=== PATIENT | male | born 1945 | race Caucasian/White ===

== ENCOUNTER 2017-04-13 09:54 | Emergency (ER) | payer MEDICARE, OTHER ==
--- NOTE | 2017-04-13 10:05 | ER Document Report ---
ED GI/ - General Chief Complaint: Flank Pain Stated Complaint: FLANK PAIN Mode of Arrival: Ambulatory Information source: Patient Notes: Patient presents complaining of right flank pain for the past week. Patient states pain radiates around to the right lateral side. Patient denies any nausea, vomiting, fever, or urinary symptoms. Patient states he has a history kidney stones and suspects the same today. TRAVEL OUTSIDE OF THE [place] IN LAST 30 DAYS: No - HPI Patient complains to provider of: Flank pain. No: Abdominal pain, Dysuria, Hematuria, Vomiting Onset: Last week Timing/Duration: Persistent Quality of pain: Achy Pain Level: 4 Location: Right flank Associated symptoms: Other - Right flank pain. denies: Diarrhea, Dysuria, Fever , Loss of appetite, Nausea, Urinary hesitancy, Urinary frequency, Urinary retention, Urinary urgency, Vomiting Exacerbated by: Denies Relieved by: Denies Similar symptoms previously: Yes Recently seen / treated by doctor: No - Related Data Allergies/Adverse Reactions: No Known Allergies Allergy (Verified 04/13/17 10:00) Past Medical History - General Information source: Patient - Social History Smoking Status: Never Smoker Frequency of alcohol use: Occasional Drug Abuse: None Occupation: None Lives with: Spouse/Significant other Family History: CAD, Hypertension - Past Medical History Cardiac Medical History: Reports: Hx Heart Attack - 2, Hx Hypercholesterolemia Endocrine Medical History: Reports: Hx Diabetes Mellitus Type 2 Renal/ Medical History: Reports: Hx Kidney Stones. Denies: Hx Peritoneal Dialysis Past Surgical History: Reports: Hx Cardiac Catheterization, Hx Cardiac Surgery - stent, Hx Tonsillectomy Review of Systems - Review of Systems Constitutional: No symptoms reported. denies: Fever, Recent illness EENT: No symptoms reported Cardiovascular: No symptoms reported. denies: Chest pain Respiratory: No symptoms reported. denies: Cough, Short of breath Gastrointestinal: Abdominal pain - Right lateral side. denies: Nausea, Vomiting Genitourinary: Flank pain - Right flank. denies: Dysuria, Frequency, Hematuria Male Genitourinary: No symptoms reported Musculoskeletal: No symptoms reported Skin: No symptoms reported Hematologic/Lymphatic: No symptoms reported Neurological/Psychological: No symptoms reported Physical Exam - Vital signs Vitals: Temp Pulse Resp BP Pulse Ox 97.7 F 63 18 112/67 96 04/13/17 09:55 04/13/17 09:55 04/13/17 09:55 04/13/17 09:55 04/13/17 09:55 - General General appearance: Appears well, Alert In distress: None - HEENT Head: Normocephalic, Atraumatic Eyes: Normal Conjunctiva: Normal Nasal: Normal Mouth/Lips: Normal Mucous membranes: Normal Neck: Normal, Supple. No: Lymphadenopathy - Respiratory Respiratory status: No respiratory distress Chest status: Nontender Breath sounds: Normal. No: Rales, Rhonchi, Stridor, Wheezing Chest palpation: Normal - Cardiovascular Rhythm: Regular Heart sounds: S1 appreciated, S2 appreciated Murmur: No - Abdominal Inspection: Normal Distension: No distension Bowel sounds: Normal Tenderness: Nontender Organomegaly: No organomegaly - Back Back: CVA tenderness - right - Extremities General upper extremity: Normal inspection, Normal ROM General lower extremity: Normal inspection, Normal ROM - Neurological Neuro grossly intact: Yes Cognition: Normal Albin Coma Scale Eye Opening: Spontaneous Richie Coma Scale Verbal: Oriented Albin Coma Scale Motor: Obeys Commands Albin Coma Scale Total: 15 - Psychological Associated symptoms: Normal affect, Normal mood - Skin Skin Temperature: Warm Skin Moisture: Dry Skin Color: Normal Course - Vital Signs Vital signs: Temp Pulse Resp BP Pulse Ox 97.9 F 65 16 110/68 98 04/13/17 12:08 04/13/17 12:08 04/13/17 12:08 04/13/17 12:08 04/13/17 12:08 - Laboratory Result Diagrams: 04/13/17 10:24 04/13/17 10:24 Laboratory results interpreted by me: 04/13/17 04/13/17 04/13/17 10:09 10:24 10:24 WBC 3.9 L Sodium 136.9 L Glucose 223 H Lipase 337.5 H Urine Glucose (UA) >=500 H Urine Blood SMALL H Urine Urobilinogen 2.0 H Ur Leukocyte Esterase MODERATE H Labs- Entire Visit 04/13/17 04/13/17 04/13/17 10:09 10:24 10:24 WBC 3.9 L RBC 4.57 Hgb 14.3 Hct 41.1 MCV 90 MCH 31.3 MCHC 34.8 RDW 12.6 Plt Count 179 Seg Neutrophils % 47.8 Lymphocytes % 36.6 Monocytes % 9.3 Eosinophils % 5.1 Basophils % 1.2 Absolute Neutrophils 1.8 Absolute Lymphocytes 1.4 Absolute Monocytes 0.4 Absolute Eosinophils 0.2 Absolute Basophils 0.0 Sodium 136.9 L Potassium 4.0 Chloride 101 Carbon Dioxide 28 Anion Gap 8 BUN 12 Creatinine 0.83 Est GFR ( Amer) > 60 Est GFR (Non-Af Amer) > 60 Glucose 223 H Calcium 9.3 Total Bilirubin 0.5 Direct Bilirubin 0.4 Indirect Bilirubin Not Reportable Neonat Total Bilirubin Not Reportable AST 27 ALT 27 Alkaline Phosphatase 52 Total Protein 7.6 Albumin 4.2 Lipase 337.5 H Urine Color YELLOW Urine Appearance CLEAR Urine pH 6.0 Ur Specific Ruby 1.008 Urine Protein NEGATIVE Urine Glucose (UA) >=500 H Urine Ketones NEGATIVE Urine Blood SMALL H Urine Nitrite NEGATIVE Urine Bilirubin NEGATIVE Urine Urobilinogen 2.0 H Ur Leukocyte Esterase MODERATE H Urine WBC (Auto) 26 Urine RBC (Auto) 1 Urine Mucus (Auto) RARE Urine Ascorbic Acid NEGATIVE - Diagnostic Test Radiology reviewed: Reports reviewed Discharge - Discharge Clinical Impression: Flank pain, Elevated lipase, Renal calculus or stone Condition: Stable Disposition: HOME, SELF-CARE Instructions: Flank Pain ([facility]), Kidney Stone ([facility]), Oral Narcotic Medication ( [facility]), Trimethoprim-Sulfa ([facility]) Additional Instructions: Return immediately for any new or worsening symptoms Followup with your primary care provider, call tomorrow to make a followup appointment Follow-up with a urologist for further evaluation of renal stones Urine culture is pending, we will call if you need any different treatment Avoid drinking alcohol Prescriptions: Hydrocodone/Acetaminophen [Prospect 5-325 Tablet] 1 each PO Q8 PRN #15 tablet PRN Reason: Sulfamethoxazole/Trimethoprim [Bactrim Ds Tablet] 1 each PO BID #14 tablet Referrals: MADELINE GONCALVES FNP-C [Primary Care Provider] - 04/15/17 [facility] [Provider Group] - Follow up in 3-5 days
[2017-04-13 10:43] LABS: APPEARANCE,URINE CLEAR; BILIRUBIN,URINE NEGATIVE (NEGATIVE); GLUCOSE, URINE >=500 mg/dL (NEGATIVE); KETONES,URINE NEGATIVE (NEGATIVE); LEUKOCYTE ESTERASE,URINE MODERATE (NEGATIVE); NITRITE,URINE NEGATIVE (NEGATIVE); PROTEIN,URINE NEGATIVE (NEGATIVE); URINE SPECIFIC GRAVITY 1.008
[2017-04-13 10:44] LABS: ABSOLUTE EOSINOPHILS # (AUTO) 0.2 10^3/uL (0.0-0.6); ABSOLUTE LYMPHOCYTES (AUTO) 1.4 10^3/uL (0.5-4.7); ABSOLUTE MONOCYTES (AUTO) 0.4 10^3/uL (0.1-1.4); ABSOLUTE NEUT (AUTO) 1.8 10^3/uL (1.7-8.2); BASOPHILS % (AUTO) 1.2 % (0-2); EOSINOPHILS % (AUTO) 5.1 % (0-6); HEMATOCRIT 41.1 % (37.9-51.0); HEMOGLOBIN 14.3 g/dL (13.5-17.0); HGB HCT DIFFERENCE 1.8; LYMPHOCYTES % (AUTO) 36.6 % (13-45); MEAN CORPUSCULAR HEMOGLOBIN 31.3 pg (27.0-33.4); MEAN CORPUSCULAR HGB CONC 34.8 g/dL (32.0-36.0); MEAN CORPUSCULAR VOLUME 90 fl (80-97); MONOCYTES % (AUTO) 9.3 % (3-13); RED BLOOD COUNT 4.57 10^6/uL (4.35-5.55); RED CELL DISTRIBUTION WIDTH 12.6 % (11.5-14.0); SEGMENTED NEUTROPHILS % (AUTO) 47.8 % (42-78); WHITE BLOOD COUNT 3.9 10^3/uL (4.0-10.5)
--- NOTE | 2017-04-13 10:48 | RADIOLOGY REPORT (SQ) ---
EXAM DESCRIPTION: CT LTD RENAL STONE PROTOCOL ON COMPLETED DATE/TIME: 04/13/2017 10:34 am REASON FOR STUDY: r flank, r lat side pain COMPARISON: 02/04/2013 TECHNIQUE: CT scan of the abdomen and pelvis performed without intravenous or oral contrast. Images reviewed with lung, soft tissue, and bone windows. Reconstructed coronal and sagittal MPR images revi ewed. All images stored on PACS. All CT scanners at this facility use dose modulation, iterative reconstruction, and/or weight based d osing when appropriate to reduce radiation dose to as low as reasonably achievable (ALARA). [facility]: Dose Right [facility]: CareDose [facility]: Dose Right [facility]: Teradose 4D [facility]: [employer] RADIATION DOSE: Up-to-date CT equipment and radiation dose reduction techniques were employed. CTDIv ol: 8.6 mGy. DLP: 456 mGy-cm.mGy. LIMITATIONS: None. FINDINGS: LOWER CHEST: No significant findings. No nodules or infiltrates. NON-CONTRASTED LIVER, SPLEEN, ADRENALS: Evaluation limited by lack of IV contrast. No identified sign ificant masses. PANCREAS: No masses. No peripancreatic inflammatory changes. GALLBLADDER: No identified stones by CT criteria. No inflammatory changes to suggest cholecystitis. RIGHT KIDNEY AND URETER: Tiny cyst lower pole. No suspicious masses. Assessment limited by lack of I V contrast. Multiple nonobstructing calculi similar to prior study. No hydronephrosis or hydroure ter. LEFT KIDNEY AND URETER: No suspicious masses. Assessment limited by lack of IV contrast. Multiple n onobstructing calculi similar to prior study. No hydronephrosis or hydroureter. AORTA AND RETROPERITONEUM: Scattered atherosclerotic calcifications. No aneurysm. No retroperitoneal masses or adenopathy. BOWEL AND PERITONEAL CAVITY: No obvious masses or inflammatory changes. No free fluid. APPENDIX: Normal. PELVIS, BLADDER, AND ABDOMINAL WALL:Tiny fat containing periumbilical hernia and small fat containing right inguinal hernia. No abnormal masses. No free fluid. Bladder normal. BONES: Stable degenerative change without fracture or suspicious osseous lesion. OTHER: No other significant finding. IMPRESSION: STABLE BILATERAL NEPHROLITHIASIS WITHOUT LOWER URINARY TRACT STONES OR HYDRONEPHROSIS. ADDITIONAL CHRONIC CHANGES ABOVE. TECHNICAL DOCUMENTATION: JOB ID: [id number] Quality ID # [id number]: Final reports with documentation of one or more dose reduction techniques (e.g., Au tomated exposure control, adjustment of the mA and/or kV according to patient size, use of iterative reconstruction technique) 2010 [employer]- All Rights Reserved
[2017-04-13] MEDS ORDERED: HYDROCODONE/ACETAMINOPHEN 5-325 MG TABLET PO ONE (10:52)
[2017-04-13 11:02] LABS: ALANINE AMINOTRANSFERASE 27 U/L (21-72); ALBUMIN 4.2 g/dL (3.5-5.0); ALKALINE PHOSPHATASE 52 U/L (38-126); ANION GAP 8 (5-19); ASPARTATE AMINO TRANSFERASE 27 U/L (17-59); BILIRUBIN,DIRECT 0.4 mg/dL (0.0-0.4); BILIRUBIN,TOTAL 0.5 mg/dL (0.2-1.3); BLOOD UREA NITROGEN 12 mg/dL (7-20); CALCIUM 9.3 mg/dL (8.4-10.2); CARBON DIOXIDE 28 mmol/L (22-30); CHLORIDE 101 mmol/L (98-107); CREATININE RESULT 0.83 mg/dL (0.52-1.25); GLUCOSE 223 mg/dL (75-110); LIPASE 337.5 U/L (23-300); SODIUM 136.9 mmol/L (137-145); TOTAL PROTEIN 7.6 g/dL (6.3-8.2)
[2017-04-13] MEDS ORDERED: SULFAMETHOXAZOLE/TRIMETHOPRIM 800-160 MG TABLET PO ONE (11:31)
[2017-04-13 12:08] VITALS: BP 110/68
== END 2017-04-13 12:08 | disposition home or self-care (01) ==
LOC: ER 09:54
DX: R10.9 Unspecified abdominal pain (principal); R74.8 Abnormal levels of other serum enzymes; N20.0 Calculus of kidney
CPT/HCPCS: 99284; 36415; 87086; 83690; 85025; 87088; 80053; 81001; 87186; 76380; A9270 ×2

== ENCOUNTER 2017-06-11 15:23 | Emergency (ER) | payer MEDICARE, OTHER ==
--- NOTE | 2017-06-11 15:53 | ER Document Report ---
ED Medical Screen (RME) - General Chief Complaint: Weakness Stated Complaint: SHORTNESS OF BREATH Time Seen by Provider: 06/11/17 15:52 Notes: Patient has several different concerns. He states he has a knot on the back of his neck. He has had some cough and shortness of breath. He does have pain in his neck that goes down the left side of his body. He also has some pain on the bottom of his feet. He states he has had some numbness on the left side of his face as well for several days. He also has some numbness in his hands but says that is chronic. He states he has been feeling weak and that "something is not right". He also states he has had significant nausea for the last several days. TRAVEL OUTSIDE OF THE [place] IN LAST 30 DAYS: No - Related Data Allergies/Adverse Reactions: No Known Allergies Allergy (Verified 06/11/17 15:42) Past Medical History - Past Medical History Cardiac Medical History: Reports: Hx Heart Attack - 2, Hx Hypercholesterolemia Endocrine Medical History: Reports: Hx Diabetes Mellitus Type 2 Renal/ Medical History: Reports: Hx Kidney Stones. Denies: Hx Peritoneal Dialysis Past Surgical History: Reports: Hx Cardiac Catheterization, Hx Cardiac Surgery - stent, Hx Tonsillectomy Physical Exam - Vital signs Vitals: Temp Pulse BP Pulse Ox 97.7 F 56 L 122/64 99 06/11/17 15:41 06/11/17 15:41 06/11/17 15:41 06/11/17 15:41 Course - Vital Signs Vital signs: Temp Pulse Resp BP Pulse Ox 97.7 F 56 L 122/64 99 06/11/17 15:41 06/11/17 15:41 06/11/17 15:41 06/11/17 15:41
--- NOTE | 2017-06-11 16:42 | RADIOLOGY REPORT (SQ) ---
EXAM DESCRIPTION: CHEST PA/LAT COMPLETED DATE/TIME: 06/11/2017 4:34 pm REASON FOR STUDY: cough/sob COMPARISON: 08/13/2016 EXAM PARAMETERS: NUMBER OF VIEWS: two views TECHNIQUE: Digital Frontal and Lateral radiographic views of the chest acquired. RADIATION DOSE: NA LIMITATIONS: none FINDINGS: LUNGS AND PLEURA: No opacities, masses or pneumothorax. No pleural effusion. MEDIASTINUM AND HILAR STRUCTURES: No masses or contour abnormalities. HEART AND VASCULAR STRUCTURES: Heart normal size. No evidence for failure. BONES: No acute findings. HARDWARE: None in the chest. OTHER: No other significant finding. IMPRESSION: NO SIGNIFICANT RADIOGRAPHIC FINDING IN THE CHEST. TECHNICAL DOCUMENTATION: JOB ID: [id number]- All Rights Reserved
[2017-06-11 16:44] LABS: ABSOLUTE EOSINOPHILS # (AUTO) 0.2 10^3/uL (0.0-0.6); ABSOLUTE LYMPHOCYTES (AUTO) 1.8 10^3/uL (0.5-4.7); ABSOLUTE MONOCYTES (AUTO) 0.6 10^3/uL (0.1-1.4); ABSOLUTE NEUT (AUTO) 3.5 10^3/uL (1.7-8.2); BASOPHILS % (AUTO) 0.7 % (0-2); EOSINOPHILS % (AUTO) 3.4 % (0-6); HEMATOCRIT 42.3 % (37.9-51.0); HEMOGLOBIN 15.1 g/dL (13.5-17.0); MEAN CORPUSCULAR HGB CONC 35.6 g/dL (32.0-36.0); MEAN CORPUSCULAR VOLUME 90 fl (80-97); RED BLOOD COUNT 4.72 10^6/uL (4.35-5.55); RED CELL DISTRIBUTION WIDTH 13.1 % (11.5-14.0); SEGMENTED NEUTROPHILS % (AUTO) 56.9 % (42-78); WHITE BLOOD COUNT 6.1 10^3/uL (4.0-10.5)
[2017-06-11 17:06] LABS: ALANINE AMINOTRANSFERASE 30 U/L (21-72); ALBUMIN 4.7 g/dL (3.5-5.0); ALKALINE PHOSPHATASE 64 U/L (38-126); ANION GAP 14 (5-19); ASPARTATE AMINO TRANSFERASE 24 U/L (17-59); BILIRUBIN,DIRECT 0.4 mg/dL (0.0-0.4); BILIRUBIN,TOTAL 0.6 mg/dL (0.2-1.3); BLOOD UREA NITROGEN 21 mg/dL (7-20); CALCIUM 9.8 mg/dL (8.4-10.2); CARBON DIOXIDE 27 mmol/L (22-30); CHLORIDE 101 mmol/L (98-107); CREATININE RESULT 0.84 mg/dL (0.52-1.25); GLUCOSE 94 mg/dL (75-110); POTASSIUM 3.9 mmol/L (3.6-5.0); SODIUM 141.9 mmol/L (137-145); TOTAL PROTEIN 7.7 g/dL (6.3-8.2)
[2017-06-11] MEDS ORDERED: METOCLOPRAMIDE HCL 10 MG TABLET PO ONE (17:24)
--- NOTE | 2017-06-11 17:28 | ER Document Report ---
ED General - General Mode of Arrival: Ambulatory Information source: Patient TRAVEL OUTSIDE OF THE [place] IN LAST 30 DAYS: No <CARMELINA CEJA - Last Filed: 06/11/17 19:01> <NOEL ALEXANDER - Last Filed: 06/11/17 19:19> - General Chief Complaint: Weakness Stated Complaint: SHORTNESS OF BREATH Time Seen by Provider: 06/11/17 15:52 Notes: Patient is a 72 year old male that presents to the emergency department today with multiple generalized complaints. Patient mentions feelings of generalized weakness with associated nausea and a feeling that he may pass out after 20 or 30 yards of walking which is new for him over the last two days. Patient also mentions that he has a "knot in his neck" which has been present for around 8 or 9 months that he believes is causing the headaches and the pain beside both eyes that he has today. Patient states he has been eating normally. Patient denies any vomiting, heart palpitations, heart racing sensation, diarrhea, numbness, or tingling. (CARMELINA CEJA) - Related Data Allergies/Adverse Reactions: No Known Allergies Allergy (Verified 06/11/17 15:42) Past Medical History - General Information source: Patient, [facility] Records - Social History Smoking Status: Never Smoker Cigarette use (# per day): No Frequency of alcohol use: None Drug Abuse: None Lives with: Family Family History: Reviewed & Not Pertinent, CAD, Hypertension - Past Medical History Cardiac Medical History: Reports: Hx Heart Attack - 2, Hx Hypercholesterolemia Endocrine Medical History: Reports: Hx Diabetes Mellitus Type 2 Renal/ Medical History: Reports: Hx Kidney Stones Past Surgical History: Reports: Hx Cardiac Catheterization, Hx Cardiac Surgery - stent, Hx Tonsillectomy <CARMELINA CEJA - Last Filed: 06/11/17 19:01> Review of Systems - Review of Systems Constitutional: See HPI, Weakness EENT: See HPI, Other - pain near eyes bilaterally Cardiovascular: See HPI, Syncope - near. denies: Palpitations, Heart racing Respiratory: See HPI, Short of breath Gastrointestinal: See HPI, Nausea. denies: Vomiting Genitourinary: No symptoms reported Male Genitourinary: No symptoms reported Musculoskeletal: See HPI, Neck pain Skin: No symptoms reported Hematologic/Lymphatic: No symptoms reported Neurological/Psychological: See HPI, Headaches. denies: Numbness, Tingling -: Yes All other systems reviewed and negative <CARMELINA CEJA - Last Filed: 06/11/17 19:01> Physical Exam <CARMELINA CEJA - Last Filed: 06/11/17 19:01> <NOEL ALEXANDER - Last Filed: 06/11/17 19:19> - Vital signs Vitals: Temp Pulse BP Pulse Ox 97.7 F 56 L 122/64 99 06/11/17 15:41 06/11/17 15:41 06/11/17 15:41 06/11/17 15:41 - Notes Notes: Physical Exam: General: Alert, appears well. HEENT: Normocephalic. Atraumatic. PERRL. Extraocular movements intact. Oropharynx clear. Neck: Supple. Prominent T1 vertebrae. Non-tender. Respiratory: No respiratory distress. Clear and equal breath sounds bilaterally. Cardiovascular: Regular rate and rhythm. Abdominal: Normal Inspection. Non-tender. No distension. Normal Bowel Sounds. Back: Non-tender. No deformity or step off. Extremities: Moves all four extremities. Upper extremities: Normal inspection. Normal ROM. Lower extremities: Normal inspection. No edema. Normal ROM. Neurological: Normal cognition. AAOx4. Normal speech. Psychological: Normal affect. Normal Mood. Skin: Warm. Dry. Normal color. (CARMELINA CEJA) Course - Laboratory Result Diagrams: 06/11/17 16:26 06/11/17 16:26 <CARMELINA CEJA - Last Filed: 06/11/17 19:01> - Laboratory Result Diagrams: 06/11/17 16:26 06/11/17 16:26 <NOEL ALEXANDER - Last Filed: 06/11/17 19:19> - Re-evaluation Re-evalutation: 06/11/17 18:59 Reevaluation- patient no long is nauseated, agrees to follow up with PCP Kourtney Hamm at earliest convenience. 06/11/17 19:01 Nurse states that the patient's states that they have a trip to [place] planned tomorrow, and asked if this was something that would still be possible. Explained that with complaints today, this trip is not advisable. (CARMELINA CEJA) - Vital Signs Vital signs: Temp Pulse Resp BP Pulse Ox 97.7 F 56 L 122/64 99 06/11/17 15:41 06/11/17 15:41 06/11/17 15:41 06/11/17 15:41 - Laboratory Laboratory results interpreted by me: 06/11/17 06/11/17 16:26 16:26 BUN 21 H Urine Blood MODERATE H Ur Leukocyte Esterase TRACE H Discharge <CARMELINA CEJA - Last Filed: 06/11/17 19:01> <NOEL ALEXANDER - Last Filed: 06/11/17 19:19> - Discharge Clinical Impression: Nausea, Neck pain Chest pain Qualifiers: Chest pain type: unspecified Qualified Code(s): R07.9 - Chest pain, unspecified Disposition: HOME, SELF-CARE Instructions: Chest Pain of Unclear Cause ([facility]) Additional Instructions: It is unclear what was causing your chest pain and nausea. This is been going on for a few days. Your blood tests and other tests looked good. You may need further cardiac testing. Please call your doctor tomorrow to arrange for follow -up and possible cardiac stress test. Return the emergency department if you have further chest pain, shortness of breath, or other urgent concerns. Scribe Attestation: 06/11/17 19:19 I personally performed the services described in the documentation, reviewed and edited the documentation which was dictated to the scribe in my presence, and it accurately records my words and actions. (NOEL ALEXANDER) Scribe Documentation - Scribe Written by Scribe:: Ted Pratt, 06/11/2017 1803 acting as scribe for :: Allen <CARMELINA CEJA - Last Filed: 06/11/17 19:01>
[2017-06-11 17:36] LABS: APPEARANCE,URINE CLEAR; BILIRUBIN,URINE NEGATIVE (NEGATIVE); GLUCOSE, URINE NEGATIVE (NEGATIVE); KETONES,URINE NEGATIVE (NEGATIVE); LEUKOCYTE ESTERASE,URINE TRACE (NEGATIVE); NITRITE,URINE NEGATIVE (NEGATIVE); PROTEIN,URINE NEGATIVE (NEGATIVE); URINE SPECIFIC GRAVITY 1.005; UROBILINOGEN,URINE NEGATIVE mg/dL (<2.0)
[2017-06-11 19:24] VITALS: BP 123/74
== END 2017-06-11 19:29 | disposition home or self-care (01) ==
LOC: ER 15:23
DX: R11.0 Nausea (principal); M54.2 Cervicalgia; R07.9 Chest pain, unspecified; R53.1 Weakness; R22.1 Localized swelling, mass and lump, neck; R06.02 Shortness of breath; R55 Syncope and collapse; R51 Headache; E11.9 Type 2 diabetes mellitus without complications; I25.2 Old myocardial infarction; Z95.5 Presence of coronary angioplasty implant and graft
CPT/HCPCS: 99285; 36415; 85025; 80053; 81001; 84484; 71020; A9270

== ENCOUNTER 2017-09-24 22:54 | Observation (INO) | payer MEDICARE, OTHER ==
--- NOTE | 2017-09-25 00:02 | ER Document Report ---
ED General - General Chief Complaint: Chest Pain Stated Complaint: CHEST PAIN Time Seen by Provider: 09/25/17 00:01 Notes: Patient is a 72-year-old male who presents with complaints of dizziness as well as facial droop on the right side as well as difficulty walking. Says symptoms started yesterday. Denies any recent fevers or infections. He did fall today and hit his head. He says he has headache over the left top part of his head since falling and hitting his head. He said he did have dizziness once. He was admitted here back in May. At that time he had vertigo type symptoms and that he had a spinning sensation. Patient denies a spinning sensation this time. Denies any vomiting. No diarrhea. There is chief complaint of chest pain on the chart. Patient says he has just very mild chest tightness. He says this is typical for him and nothing new. He does have history of coronary artery disease and does have stents. He did have a stress test in 2014 which was negative for any signs of acute ischemia. He does have a history of ischemic cardiomyopathy. TRAVEL OUTSIDE OF THE [place] IN LAST 30 DAYS: No - Related Data Allergies/Adverse Reactions: No Known Allergies Allergy (Verified 09/24/17 22:55) Past Medical History - Social History Smoking Status: Never Smoker Frequency of alcohol use: None Drug Abuse: None Family History: Reviewed & Not Pertinent, CAD, Hypertension Patient has suicidal ideation: No Patient has homicidal ideation: No - Past Medical History Cardiac Medical History: Reports: Hx Heart Attack - 2, Hx Hypercholesterolemia Endocrine Medical History: Reports: Hx Diabetes Mellitus Type 2 Renal/ Medical History: Reports: Hx Kidney Stones. Denies: Hx Peritoneal Dialysis Past Surgical History: Reports: Hx Cardiac Catheterization, Hx Cardiac Surgery - stent, Hx Tonsillectomy Review of Systems - Review of Systems Notes: My Normal Review Basic REVIEW OF SYSTEMS: CONSTITUTIONAL : Denies fever, chills, or sweats. Denies recent illness. EENT: Denies eye, ear, throat, or mouth pain or symptoms. Denies nasal or sinus congestion. RESPIRATORY: Denies cough, cold, or chest congestion. Denies shortness of breath, difficulty breathing, or wheezing. GASTROINTESTINAL: Denies abdominal pain. Denies nausea, vomiting, or diarrhea. GENITOURINARY: Denies difficulty urinating, painful urination, burning, frequency, or blood in urine. MUSCULOSKELETAL: Denies neck or back pain or joint pain or swelling. SKIN: Denies rash or skin lesions. NEUROLOGICAL: Weakness to the right side of the face. Difficulty ambulating. Has a mild headache. ALL OTHER SYSTEMS REVIEWED AND NEGATIVE. Physical Exam - Vital signs Vitals: Temp Pulse Resp BP Pulse Ox 97.4 F 58 L 22 H 91/62 L 95 09/24/17 23:15 09/24/17 23:15 09/24/17 23:15 09/24/17 23:15 09/24/17 23:15 - Notes Notes: General Appearance: Well nourished, alert, cooperative, no acute distress, no obvious discomfort. Vitals: reviewed, See vital signs table. Head: no swelling or tenderness to the head Eyes: PERRL, EOMI, Conjuctiva clear Mouth: No decreasd moisture Lungs: No wheezing, No rales, No rhonci, No accessory muscle use, good air exchange bilaterally. Heart: Normal rate, Regular rythm, No murmur, no rub Abdomen: Normal BS, soft, No rigidity, No abdominal tenderness, No guarding, no rebound, no abdominal masses, no organomegaly Extremities: strength 5/5 in all extremities, good pulses in all extremities, no swelling or tenderness in the extremities, no edema. Skin: warm, dry, appropriate color, no rash Neuro: speech clear, oriented x 3, normal affect, responds appropriately to questions. Cranial nerves II through XII are intact with exception of right- sided facial droop and the patient has a small. He is able to wrinkle his forehead without difficulty. He has good strength in all 4 extremities. Normal distal sensation. When he stands to walk he shuffles his gait and starts to fall towards the side. Course - Re-evaluation Re-evalutation: 09/25/17 02:13 #3 evaluate the patient he still had right-sided facial droop when he tried small. I started become suspicious because the patient then went when sitting up out of bed and when he went steep raise both sides of his face symmetrically. I asked the patient why he was able just to do that. Patient says he is not sure is talking about and again cannot raise rest of his face when he went to small. He is able to talk normal without slurring speech. I asked him if there is anything emotionally going on her feet had a reason otherwise to want to be in the hospital. Patient immediately denied that and says that he truly cannot raise rest of his face when he smiles and says that he has difficulty walking. I asked the to come outside and speak with me. She says that is not sure if the patient's symptoms are real or not either. She denies having history of psychiatric illness but says she almost thinks that this could potentially be psychiatric if he is faking it. She again is not sure if he is faking or not but also has her suspicions. Patient is 72 years old without a history of psychiatric illness or disorder. I suspect in the end this may be psychiatric; however, being that he has multiple risk factors for stroke and has no previous history of psychiatric illness at age 72 and feels appropriate to admit for MRI. The MRI is negative and his workup is negative he may eventually need psychiatric consult. I did discuss the case with Dr. Quevedo, hospitalist, who agrees to admit the patient. Dictation of this chart was performed using voice recognition software; therefore, there may be some unintended grammatical errors. - Vital Signs Vital signs: Temp Pulse Resp BP Pulse Ox 97.4 F 58 L 17 101/68 96 09/24/17 23:15 09/24/17 23:15 09/24/17 23:29 09/24/17 23:28 09/24/17 23:28 - Laboratory Result Diagrams: 09/25/17 00:28 09/25/17 00:28 Laboratory results interpreted by me: 09/25/17 00:28 Sodium 136.2 L Glucose 244 H - EKG Interpretation by Me Additional EKG results interpreted by me: 09/25/17 00:02 EKG is reviewed and interpreted by me. EKG shows sinus bradycardia with rate of [address] segment elevation or depression. No ischemic T-wave inversions. CO interval, QRS duration, QTc intervals are within normal range. Old EKG for comparison is from August 13, 2016. Discharge - Discharge Clinical Impression: Dizziness, Facial droop, Bradycardia Condition: Stable Disposition: ADMITTED OBSERVATION Admitting Provider: Hospitalist Unit Admitted: Telemetry Referrals: MADELINE GONCALVES, RHIANNON-C [Primary Care Provider] - Follow up as needed
[2017-09-25] MEDS ORDERED: NORMAL SALINE 500 ML IV ONE (00:11)
[2017-09-25] MEDS ORDERED: ONDANSETRON HCL INJ/PF 4 MG/2 ML SDV IV ONE (00:20)
[2017-09-25 00:38] LABS: ABSOLUTE BASOPHILS # (AUTO) 0.1 10^3/uL (0.0-0.2); ABSOLUTE EOSINOPHILS # (AUTO) 0.2 10^3/uL (0.0-0.6); ABSOLUTE LYMPHOCYTES (AUTO) 1.6 10^3/uL (0.5-4.7); ABSOLUTE MONOCYTES (AUTO) 0.7 10^3/uL (0.1-1.4); ABSOLUTE NEUT (AUTO) 3.7 10^3/uL (1.7-8.2); BASOPHILS % (AUTO) 0.9 % (0-2); EOSINOPHILS % (AUTO) 2.5 % (0-6); HEMATOCRIT 40.1 % (37.9-51.0); LYMPHOCYTES % (AUTO) 25.5 % (13-45); MEAN CORPUSCULAR HEMOGLOBIN 30.7 pg (27.0-33.4); MEAN CORPUSCULAR HGB CONC 34.9 g/dL (32.0-36.0); MEAN CORPUSCULAR VOLUME 88 fl (80-97); MONOCYTES % (AUTO) 11.5 % (3-13); PLATELET COUNT 182 10^3/uL (150-450); RED BLOOD COUNT 4.56 10^6/uL (4.35-5.55); RED CELL DISTRIBUTION WIDTH 12.6 % (11.5-14.0); SEGMENTED NEUTROPHILS % (AUTO) 59.6 % (42-78); TOTAL CELLS COUNTED % (AUTO) 100 %; WHITE BLOOD COUNT 6.2 10^3/uL (4.0-10.5)
--- NOTE | 2017-09-25 00:39 | RADIOLOGY REPORT (SQ) ---
EXAM DESCRIPTION: CT HEAD WITHOUT COMPLETED DATE/TIME: 09/25/2017 12:21 am REASON FOR STUDY: headache, right sided facial weakness COMPARISON: CT brain and MRI head 08/13/2016. TECHNIQUE: Axial images acquired through the brain without intravenous contrast. Images reviewed wi th bone, brain and subdural windows. Images stored on PACS. All CT scanners at this facility use dose modulation, iterative reconstruction, and/or weight based d osing when appropriate to reduce radiation dose to as low as reasonably achievable (ALARA). [facility]: Dose Right [facility]: CareDose [facility]: Dose Right [facility]: Teradose 4D [facility]: [employer] RADIATION DOSE: CT Rad equipment meets quality standard of care and radiation dose reduction techniq ues were employed. CTDIvol: 64.6 mGy. DLP: 1292 mGy-cm. mGy. LIMITATIONS: None. FINDINGS: VENTRICLES: Normal size and contour. CEREBRUM: No mass effect. No hemorrhage. No midline shift. Normal uribe/white matter differentiatio n. No evidence for acute territorial infarction. CEREBELLUM: No mass effect. No hemorrhage. No alteration of density. No evidence for acute infarct ion. EXTRAAXIAL SPACES: No fluid collections. ORBITS AND GLOBE: Symmetrical contour of the globes. CALVARIUM: No depressed skull fracture. PARANASAL SINUSES: No air-fluid level. SOFT TISSUES: No hematoma. IMPRESSION: No acute intracranial hemorrhage or acute territorial infarct. EVIDENCE OF ACUTE STROKE: NO. COMMENT: Quality ID # [id number]: Final reports with documentation of one or more dose reduction techniques (e.g., Automated exposure control, adjustment of the mA and/or kV according to patient size, use of iterative reconstruction technique) TECHNICAL DOCUMENTATION: JOB ID: [id number]- All Rights Reserved
--- NOTE | 2017-09-25 00:42 | RADIOLOGY REPORT (SQ) ---
EXAM DESCRIPTION: CHEST SINGLE VIEW COMPLETED DATE/TIME: 09/25/2017 12:24 am REASON FOR STUDY: chest pain COMPARISON: Chest x-ray 06/11/2017. EXAM PARAMETERS: NUMBER OF VIEWS: One view. TECHNIQUE: Single frontal radiographic view of the chest acquired. RADIATION DOSE: NA LIMITATIONS: None. FINDINGS: LUNGS AND PLEURA: No consolidation, pneumothorax or pleural effusion. MEDIASTINUM AND HILAR STRUCTURES: No masses. Contour normal. HEART AND VASCULAR STRUCTURES: Heart normal in size. Normal vasculature. BONES: No acute findings. HARDWARE: None in the chest. IMPRESSION: No acute radiographic finding in the chest. TECHNICAL DOCUMENTATION: JOB ID: [id number] [id number]- All Rights Reserved
[2017-09-25 00:44] LABS: INTERNATIONAL RATION (INR) 0.92
[2017-09-25 00:45] LABS: PARTIAL THROMBOPLASTIN TIME 33.2 SEC (23.5-35.8)
[2017-09-25 00:47] LABS: ALANINE AMINOTRANSFERASE 31 U/L (21-72); ALBUMIN 4.2 g/dL (3.5-5.0); ALKALINE PHOSPHATASE 53 U/L (38-126); ANION GAP 9 (5-19); ASPARTATE AMINO TRANSFERASE 20 U/L (17-59); BILIRUBIN,DIRECT 0.3 mg/dL (0.0-0.4); BILIRUBIN,TOTAL 0.5 mg/dL (0.2-1.3); BLOOD UREA NITROGEN 18 mg/dL (7-20); CALCIUM 9.7 mg/dL (8.4-10.2); CARBON DIOXIDE 26 mmol/L (22-30); CHLORIDE 101 mmol/L (98-107); GLUCOSE 244 mg/dL (75-110); POTASSIUM 4.2 mmol/L (3.6-5.0); SODIUM 136.2 mmol/L (137-145); TOTAL PROTEIN 6.9 g/dL (6.3-8.2)
[2017-09-25] MEDS ORDERED: MAG HYDROX/AL HYDROX/SIMETH SUSP 30 ML UDCUP PO PRN (02:26)
[2017-09-25] MEDS ORDERED: ACETAMINOPHEN 325 MG TABLET PO PRN (02:26)
[2017-09-25] MEDS ORDERED: HYDROCODONE/ACETAMINOPHEN 5-325 MG TABLET PO PRN (02:28)
[2017-09-25] MEDS ORDERED: DIAZEPAM 5 MG TABLET PO PRN (02:28)
[2017-09-25 02:31] LABS: URINE AMPHETAMINES SCREEN NEGATIVE; URINE BARBITURATES SCREEN NEGATIVE; URINE BENZODIAZEPINES SCREEN NEGATIVE; URINE COCAINE SCREEN NEGATIVE; URINE MARIJUANA (THC) SCREEN NEGATIVE; URINE METHADONE SCREEN NEGATIVE; URINE PHENCYCLIDINE SCREEN NEGATIVE
[2017-09-25] MEDS ORDERED: HYDRALAZINE HCL 25 MG TABLET PO ONE (02:45)
[2017-09-25] MEDS ORDERED: RISPERIDONE 0.25 MG TABLET PO ONE (03:00)
[2017-09-25] MEDS ORDERED: NORMAL SALINE 1000 ML 1,000 ML IV ONE (05:50)
--- NOTE | 2017-09-25 06:05 | PDOC H&P ---
History of Present Illness Admission Date/PCP: 09/25/17 02:25 MADELINE GONCALVES, RHIANNON-C Patient complains of: Difficulty with walking, alternating left and right-sided facial weakness. History of Present Illness: SUJATHA CAMARILLO is a 72 year old male with a past medical history of posttraumatic stress disorder, questionable paranoia, conversion disorder, coronary artery disease and diabetes. Patient presents with vague headache 6 hours associated with intermittent dizziness, alternating left and right facial weakness, alternating left and right deafness, and difficulty walking. Patient' s is at bedside who is able to clarify complaints patient is a poor historian and agitated. Patient recently refilled unknown psychiatric medication. Patient currently is fluent, denies deficits or complaints. In the emergency room he is found to have mild hypotension and hyperglycemia. He is referred to the hospitalist for observation. Past Medical History Cardiac Medical History: Reports: Myocardial Infarction - 2, Hyperlipidema Endocrine Medical History: Reports: Diabetes Mellitus Type 2 Psychiatric Medical History: Reports: Post Traumatic Stress Disorder Past Surgical History Past Surgical History: Reports: Cardiac Catheterization, Tonsillectomy Social History Information Source: Patient Lives with: Spouse/Significant other Smoking Status: Never Smoker Frequency of Alcohol Use: None Hx Recreational Drug Use: No Drugs: None Hx Prescription Drug Abuse: No - Advance Directive Resuscitation Status: Full Code Family History Family History: Reviewed & Not Pertinent, CAD, Hypertension Parental Family History Reviewed: Yes Children Family History Reviewed: Yes Sibling(s) Family History Reviewed.: Yes Medication/Allergy Home Medications: Aspirin [Aspirin 81 mg Chewable Tablet] 81 mg PO DAILY 12/23/14 Atorvastatin Calcium 40 mg PO DAILY 12/23/14 Gabapentin 600 mg PO TID 12/23/14 Hydroxyzine HCl 25 mg PO BID 12/23/14 Lisinopril 10 mg PO DAILY 12/23/14 Metformin HCl [Glucophage] 500 mg PO BID 12/23/14 Niacin [Niaspan] 1,000 mg PO DAILY 12/23/14 [place]-3 Fatty Acids/Fish Oil [[place] 3 Fish Oil Softgel] 2 each PO DAILY Sertraline HCl [Zoloft] 100 bottle PO BID 08/13/16 Cyclobenzaprine HCl 10 mg PO PRN PRN 09/25/17 Prazosin HCl 2 mg PO BID 09/25/17 Simvastatin [Simvastatin] 40 mg PO DAILY 09/25/17 Allergies/Adverse Reactions: No Known Allergies Allergy (Verified 09/24/17 22:55) Review of Systems Psychiatric: PRESENT: as per HPI, anxiety, depression. ABSENT: hallucinations, homidical ideation, suicidal ideation Physical Exam Vital Signs: Temp Pulse Resp BP Pulse Ox 97.4 F 58 L 17 99/53 L 95 09/24/17 23:15 09/24/17 23:15 09/25/17 05:01 09/25/17 05:01 09/25/17 05:01 Results Impressions: Head CT 09/25/17 00:10 IMPRESSION: No acute intracranial hemorrhage or acute territorial infarct. EVIDENCE OF ACUTE STROKE: NO. Chest X-Ray 09/25/17 00:11 IMPRESSION: No acute radiographic finding in the chest. Assessment & Plan - Diagnosis (1) Bradycardia Is this a current diagnosis for this admission?: Yes Plan: Most likely cause of patient presentation with dizziness upon standing, headache and hypotension secondary to prazosin twice daily. Dosing change to schedule at night, IV fluid challenge. Follow-up orthostatic blood pressures. (2) Posttraumatic stress disorder Is this a current diagnosis for this admission?: Yes Plan: Unclear regiment Risperdal nightly ordered (3) Dizziness Is this a current diagnosis for this admission?: Yes Plan: Secondary to terazosin, Vistaril resulting in bradycardia and hypotension. Terazosin scheduled at night, TONE stockings and orthostatic blood pressures (4) Facial droop Is this a current diagnosis for this admission?: Yes Plan: Patient's neurologic complaints of alternating left and right facial droop with deafness does not suggest organic cause nor suggested by history given by . Will reevaluate following Risperdal (5) Diabetes Qualifiers: Diabetes mellitus type: type 2 Diabetes mellitus complication status: without complication Diabetes mellitus intermission coordinator insulin use: without intermission coordinator use Qualified Code(s): E11.9 - Type 2 diabetes mellitus without complications Is this a current diagnosis for this admission?: Yes Plan: Hold metformin, evaluate A1c and sliding scale coverage ordered (6) HTN (hypertension) Qualifiers: Hypertension type: essential hypertension Qualified Code(s): I10 - Essential (primary) hypertension Is this a current diagnosis for this admission?: Yes Plan: Currently hypotensive likely secondary to excessive prazosin. hypertensive medications held for systolic pressure greater than 160 - Time Time Spent: 50 to 70 Minutes - Inpatient Certification Medical Necessity: Need Close Monitoring Due to Risk of Patient Decompensation
[2017-09-25] MEDS: HEPARIN SOD (PORCINE) 5,000 UNIT/ML 1 ML SYRINGE SUBCUT SCH ×3 (06:22→22:27)
[2017-09-25 06:41] LABS: ABSOLUTE EOSINOPHILS # (AUTO) 0.1 10^3/uL (0.0-0.6); ABSOLUTE LYMPHOCYTES (AUTO) 1.5 10^3/uL (0.5-4.7); ABSOLUTE MONOCYTES (AUTO) 0.6 10^3/uL (0.1-1.4); ABSOLUTE NEUT (AUTO) 2.5 10^3/uL (1.7-8.2); BASOPHILS % (AUTO) 0.8 % (0-2); EOSINOPHILS % (AUTO) 2.9 % (0-6); HEMOGLOBIN 13.1 g/dL (13.5-17.0); LYMPHOCYTES % (AUTO) 31.1 % (13-45); MEAN CORPUSCULAR HEMOGLOBIN 31.1 pg (27.0-33.4); MEAN CORPUSCULAR HGB CONC 35.3 g/dL (32.0-36.0); MEAN CORPUSCULAR VOLUME 88 fl (80-97); MONOCYTES % (AUTO) 12.2 % (3-13); PLATELET COUNT 169 10^3/uL (150-450); RED BLOOD COUNT 4.21 10^6/uL (4.35-5.55); RED CELL DISTRIBUTION WIDTH 12.6 % (11.5-14.0); TOTAL CELLS COUNTED % (AUTO) 100 %; WHITE BLOOD COUNT 4.7 10^3/uL (4.0-10.5)
[2017-09-25 07:05] LABS: CREATINE KINASE MB 0.45 ng/mL (<4.55)
[2017-09-25 07:06] LABS: TROPONIN I < 0.012 ng/mL
--- NOTE | 2017-09-25 08:12 | EKG REPORT ---
SEVERITY:- ABNORMAL ECG - SINUS BRADYCARDIA PROBABLE INFERIOR INFARCT, AGE INDETERMINATE : Confirmed by: Salomón Nix MD 25-Sep-2017 08:11:26
[2017-09-25] MEDS ORDERED: DOXAZOSIN MESYLATE 4 MG TABLET PO SCH ×2 (10:00→22:00)
[2017-09-25] MEDS: HYDRALAZINE HCL 25 MG TABLET PO SCH ×2 (10:01→22:27)
[2017-09-25] MEDS: DOCUSATE SODIUM 100 MG CAPSULE PO SCH ×2 (10:02→17:40)
[2017-09-25] MEDS: SERTRALINE HCL 50 MG TABLET PO SCH ×2 (10:02→22:27)
[2017-09-25] MEDS: RISPERIDONE 0.25 MG TABLET PO SCH (10:02)
[2017-09-25] MEDS: GABAPENTIN 300 MG CAPSULE PO SCH ×3 (10:02→17:44)
[2017-09-25] MEDS: ASPIRIN 81 MG TABLET, CHEWABLE PO SCH (10:02)
[2017-09-25 14:04] LABS: CREATINE KINASE MB 0.27 ng/mL (<4.55)
[2017-09-25 14:05] LABS: TROPONIN I < 0.012 ng/mL
[2017-09-25 19:04] LABS: CREATINE KINASE MB 0.26 ng/mL (<4.55)
[2017-09-25 19:15] LABS: TROPONIN I < 0.012 ng/mL
[2017-09-25] MEDS ORDERED: DOXAZOSIN MESYLATE 2 MG TABLET PO SCH (22:00)
[2017-09-26] MEDS: HEPARIN SOD (PORCINE) 5,000 UNIT/ML 1 ML SYRINGE SUBCUT SCH ×2 (05:03→13:53)
[2017-09-26 05:24] LABS: ABSOLUTE EOSINOPHILS # (AUTO) 0.2 10^3/uL (0.0-0.6); ABSOLUTE LYMPHOCYTES (AUTO) 1.5 10^3/uL (0.5-4.7); ABSOLUTE MONOCYTES (AUTO) 0.4 10^3/uL (0.1-1.4); ABSOLUTE NEUT (AUTO) 3.1 10^3/uL (1.7-8.2); BASOPHILS % (AUTO) 0.7 % (0-2); EOSINOPHILS % (AUTO) 3.4 % (0-6); HEMATOCRIT 38.5 % (37.9-51.0); HEMOGLOBIN 13.6 g/dL (13.5-17.0); LYMPHOCYTES % (AUTO) 28.1 % (13-45); MEAN CORPUSCULAR HEMOGLOBIN 31.1 pg (27.0-33.4); MEAN CORPUSCULAR HGB CONC 35.3 g/dL (32.0-36.0); MEAN CORPUSCULAR VOLUME 88 fl (80-97); MONOCYTES % (AUTO) 8.5 % (3-13); PLATELET COUNT 154 10^3/uL (150-450); RED BLOOD COUNT 4.37 10^6/uL (4.35-5.55); RED CELL DISTRIBUTION WIDTH 12.6 % (11.5-14.0); SEGMENTED NEUTROPHILS % (AUTO) 59.3 % (42-78); TOTAL CELLS COUNTED % (AUTO) 100 %; WHITE BLOOD COUNT 5.3 10^3/uL (4.0-10.5)
[2017-09-26] MEDS: DOCUSATE SODIUM 100 MG CAPSULE PO SCH (10:03)
[2017-09-26] MEDS: SERTRALINE HCL 50 MG TABLET PO SCH (10:03)
[2017-09-26] MEDS: ASPIRIN 81 MG TABLET, CHEWABLE PO SCH (10:03)
[2017-09-26] MEDS: GABAPENTIN 300 MG CAPSULE PO SCH (10:03)
[2017-09-26] MEDS: RISPERIDONE 0.25 MG TABLET PO SCH (10:03)
[2017-09-26] MEDS: HYDRALAZINE HCL 25 MG TABLET PO SCH (10:03)
[2017-09-26 12:37] VITALS: BP 117/69
[2017-09-26] MEDS ORDERED: DOXAZOSIN MESYLATE 4 MG TABLET PO SCH (22:00)
--- NOTE | 2017-09-28 17:35 | PDOC DISCHARGE SUMMARY ---
General - Admit/Disc Date/PCP Admission Date/Primary Care Provider: 09/25/17 02:25 TAE LUGO Discharge Date: 09/26/17 - Discharge Diagnosis (2) Dizziness Is this a current diagnosis for this admission?: Yes (3) Posttraumatic stress disorder Is this a current diagnosis for this admission?: Yes (4) Diabetes Is this a current diagnosis for this admission?: Yes - Additional Information Resuscitation Status: Full Code Discharge Diet: Regular Discharge Activity: Activity As Tolerated Home Medications: Atorvastatin Calcium [Lipitor 40 mg Tablet] 40 mg PO QHS 09/25/17 Lisinopril [Prinivil 10 mg Tablet] 10 mg PO DAILY 09/25/17 Metformin HCl [Glucophage 500 mg Tablet] 1,000 mg PO BID 09/25/17 Niacin [Niacin ER] 1,000 mg PO DAILY 09/25/17 Aspirin [Aspirin 81 mg Chewable Tablet] 81 mg PO DAILY tab.chew 09/26/17 Docusate Sodium [Colace 100 mg Capsule] 100 mg PO BID capsule 09/26/17 Gabapentin [Neurontin 300 mg Capsule] 600 mg PO TID capsule 09/26/17 Prazosin HCl [Minipress] 2 mg PO QHS #0 09/26/17 Sertraline HCl [Zoloft 50 mg Tablet] 100 mg PO Q12 tablet 09/26/17 History of Present Illness History of Present Illness: SUJATHA CAMARILLO is a 72 year old male who was admitted with dizziness and questionable facial droop. Hospital Course Hospital Course: Patient also had some difficulty ambulating. He was found to be hypotensive in the emergency room and was found to be quite orthostatic. Review of his medications revealed many MUSKRAT TRAPPER acting agents as well as multiple duplications all likely contributing to his symptoms. His medications were adjusted and he will still need outpatient adjustment. This postural hypotension has resolved and his blood pressure has improved with the adjustment of his medications including Cardura, prazosin, hydralazine, Flexeril, gabapentin, hydrocodone as well as multiple other centrally acting agents. Also received IV fluid hydration and patient was evaluated by physical therapy and ambulated with no dizziness noted. Patient was also bradycardic on admission and this is also likely due to the alpha blockers that he was on. These have been reduced with the Cardura discontinued and prazosin cut in half I suggest further medication management as outpatient Physical Exam Vital Signs: Temp Pulse Resp BP Pulse Ox 98.2 F 65 18 117/69 98 09/26/17 11:33 09/26/17 11:33 09/26/17 11:33 09/26/17 11:33 09/26/17 11:33 Intake & Output 09/25/17 09/26/17 09/27/17 06:59 06:59 06:59 Intake Total 480 Output Total 600 Balance -120 Weight 75.6 kg General appearance: PRESENT: no acute distress, well-developed, well-nourished Head exam: PRESENT: atraumatic, normocephalic Eye exam: PRESENT: conjunctiva pink, EOMI, PERRLA. ABSENT: scleral icterus Ear exam: PRESENT: normal external ear exam Mouth exam: PRESENT: moist, tongue midline Neck exam: ABSENT: carotid bruit, JVD, lymphadenopathy, thyromegaly Respiratory exam: PRESENT: clear to auscultation cinthya. ABSENT: rales, rhonchi, wheezes Cardiovascular exam: PRESENT: RRR. ABSENT: diastolic murmur, rubs, systolic murmur Pulses: PRESENT: normal dorsalis pedis pul Vascular exam: PRESENT: normal capillary refill GI/Abdominal exam: PRESENT: normal bowel sounds, soft. ABSENT: distended, guarding, mass, organolmegaly, rebound, tenderness Rectal exam: PRESENT: deferred Extremities exam: PRESENT: full ROM. ABSENT: calf tenderness, clubbing, pedal edema Neurological exam: PRESENT: alert, awake, oriented to person, oriented to place , oriented to time, oriented to situation, CN II-XII grossly intact. ABSENT: motor sensory deficit Psychiatric exam: PRESENT: appropriate affect, normal mood. ABSENT: homicidal ideation, suicidal ideation Skin exam: PRESENT: dry, intact, warm. ABSENT: cyanosis, rash Results Laboratory Results: 09/26/17 04:14 09/26/17 04:14 WBC 5.3 RBC 4.37 Hgb 13.6 Hct 38.5 MCV 88 MCH 31.1 MCHC 35.3 RDW 12.6 Plt Count 154 Seg Neutrophils % 59.3 Lymphocytes % 28.1 Monocytes % 8.5 Eosinophils % 3.4 Basophils % 0.7 Absolute Neutrophils 3.1 Absolute Lymphocytes 1.5 Absolute Monocytes 0.4 Absolute Eosinophils 0.2 Absolute Basophils 0.0 09/25/17 09/25/17 09/25/17 06:30 06:30 13:18 Creatine Kinase 37 L 33 L CK-MB (CK-2) 0.45 Troponin I < 0.012 09/25/17 09/25/17 09/25/17 13:18 18:27 18:27 Creatine Kinase 34 L CK-MB (CK-2) 0.27 0.26 Troponin I < 0.012 < 0.012 Impressions: Head CT 09/25/17 00:10 IMPRESSION: No acute intracranial hemorrhage or acute territorial infarct. EVIDENCE OF ACUTE STROKE: NO. Chest X-Ray 09/25/17 00:11 IMPRESSION: No acute radiographic finding in the chest. Plan Time Spent: Greater than 30 Minutes
== END 2017-09-26 14:05 | disposition home or self-care (01) ==
LOC: ER 22:54 → EH 09-25 02:25 → 5 09-25 18:00
PROVIDERS: ADMIT Internal Medicine; ATTEND Internal Medicine
DX: R42 Dizziness and giddiness (principal); F43.10 Post-traumatic stress disorder, unspecified; E11.65 Type 2 diabetes mellitus with hyperglycemia; R26.2 Difficulty in walking, not elsewhere classified; I95.1 Orthostatic hypotension; R00.1 Bradycardia, unspecified; R29.810 Facial weakness; R51 Headache; W19.XXXA Unspecified fall, initial encounter; H91.8X3 Other specified hearing loss, bilateral; I25.10 Atherosclerotic heart disease of native coronary artery without angina pectoris; F41.9 Anxiety disorder, unspecified; F32.9 Major depressive disorder, single episode, unspecified; I25.2 Old myocardial infarction; R07.89 Other chest pain; I25.5 Ischemic cardiomyopathy; Z79.84 Long term (current) use of oral hypoglycemic drugs; Z79.82 Long term (current) use of aspirin; Z79.899 Other long term (current) drug therapy; Z82.49 Family history of ischemic heart disease and other diseases of the circulatory system
CPT/HCPCS: 93005; 99285; 96372; 36415 ×2; 82553; 82550; 84443; 85025 ×2; 85610; 85730; 80053; 84484; 80307; 71045; 70450; 93010; 97110; 97163; G0378 ×3; A9270 ×14; J1644; J2405; J7030; J7040; G8978; G8979; J3490

== ENCOUNTER 2018-05-18 09:08 | Inpatient (IN) | payer MEDICARE, OTHER ==
--- NOTE | 2018-05-18 09:53 | ER Document Report ---
ED Medical Screen (RME) - General Chief Complaint: Possible Kidney Stone Stated Complaint: FLANK PAIN Time Seen by Provider: 05/18/18 09:48 Notes: Patient says that he is having pain in his right flank region for the past couple of days. He went and saw a local primary care physician who gave him muscle relaxers thinking that his pain was due to pulled muscles. He does recall falling about a week ago, that hurt for a couple of days and then went away and then he had a return of this current pain. The muscle relaxers have not helped. Pain comes from the right flank around to the right abdomen. Patient is nauseated but not vomiting. No fevers. Has not noticed any blood in his urine, but has noted that it painful in his urethral meatus with urination. Surgeries of the abdomen: Hernia repair over 10 years ago. PMH: Heart disease with stents. Currently denies any chest pain. TRAVEL OUTSIDE OF THE [place] IN LAST 30 DAYS: No - Related Data Allergies/Adverse Reactions: No Known Allergies Allergy (Verified 05/18/18 09:51) Past Medical History - Social History Chew tobacco use (# tins/day): No Frequency of alcohol use: None Drug Abuse: None - Past Medical History Cardiac Medical History: Reports: Hx Heart Attack, Hx Hypercholesterolemia Endocrine Medical History: Reports: Hx Diabetes Mellitus Type 2 Renal/ Medical History: Reports: Hx Benign Prostatic Hyperplasia, Hx Kidney Stones. Denies: Hx Peritoneal Dialysis Musculoskeltal Medical History: Reports Hx Arthritis Psychiatric Medical History: Reports: Hx Post Traumatic Stress Disorder Past Surgical History: Reports: Hx Cardiac Catheterization, Hx Cardiac Surgery - stent, Hx Tonsillectomy - Immunizations History of Influenza Vaccine for 05/2017 - 10/2017 Season: Yes Influenza Administration Date for 05/2017 - 10/2017 Season: 06/26/17 Physical Exam - Vital signs Vitals: Temp Pulse Resp BP Pulse Ox 97.5 F 60 16 107/64 99 05/18/18 09:15 05/18/18 09:15 05/18/18 09:15 05/18/18 09:15 05/18/18 09:15 Course - Vital Signs Vital signs: Temp Pulse Resp BP Pulse Ox 97.5 F 60 16 107/64 99 05/18/18 09:15 05/18/18 09:15 05/18/18 09:15 05/18/18 09:15 05/18/18 09:15 Doctor's Discharge - Discharge Referrals: MADELINE GONCALVES, PHARMACY AIDE-C [Primary Care Provider] - Follow up as needed
[2018-05-18 10:39] LABS: ABSOLUTE BASOPHILS # (AUTO) 0.1 10^3/uL (0.0-0.2); ABSOLUTE EOSINOPHILS # (AUTO) 0.2 10^3/uL (0.0-0.6); ABSOLUTE LYMPHOCYTES (AUTO) 1.3 10^3/uL (0.5-4.7); ABSOLUTE MONOCYTES (AUTO) 0.8 10^3/uL (0.1-1.4); ABSOLUTE NEUT (AUTO) 5.8 10^3/uL (1.7-8.2); BASOPHILS % (AUTO) 0.6 % (0-2); EOSINOPHILS % (AUTO) 1.9 % (0-6); HEMATOCRIT 38.5 % (37.9-51.0); HEMOGLOBIN 13.3 g/dL (13.5-17.0); LYMPHOCYTES % (AUTO) 16.4 % (13-45); MEAN CORPUSCULAR HEMOGLOBIN 30.9 pg (27.0-33.4); MEAN CORPUSCULAR HGB CONC 34.5 g/dL (32.0-36.0); MEAN CORPUSCULAR VOLUME 90 fl (80-97); MONOCYTES % (AUTO) 9.4 % (3-13); PLATELET COUNT 337 10^3/uL (150-450); RED BLOOD COUNT 4.29 10^6/uL (4.35-5.55); RED CELL DISTRIBUTION WIDTH 12.5 % (11.5-14.0); SEGMENTED NEUTROPHILS % (AUTO) 71.7 % (42-78); TOTAL CELLS COUNTED % (AUTO) 100 %; WHITE BLOOD COUNT 8.1 10^3/uL (4.0-10.5)
[2018-05-18 10:52] LABS: APPEARANCE,URINE SLIGHTLY-CLOUDY; BILIRUBIN,URINE NEGATIVE (NEGATIVE); COLOR,URINE YELLOW; GLUCOSE, URINE NEGATIVE (NEGATIVE); KETONES,URINE NEGATIVE (NEGATIVE); LEUKOCYTE ESTERASE,URINE TRACE (NEGATIVE); NITRITE,URINE NEGATIVE (NEGATIVE); PROTEIN,URINE NEGATIVE (NEGATIVE); URINE SPECIFIC GRAVITY 1.018
[2018-05-18 10:57] LABS: ALANINE AMINOTRANSFERASE 23 U/L (21-72); ALBUMIN 3.9 g/dL (3.5-5.0); ALKALINE PHOSPHATASE 58 U/L (38-126); ANION GAP 10 (5-19); ASPARTATE AMINO TRANSFERASE 25 U/L (17-59); BILIRUBIN,DIRECT 0.5 mg/dL (0.0-0.4); BILIRUBIN,TOTAL 0.5 mg/dL (0.2-1.3); BLOOD UREA NITROGEN 27 mg/dL (7-20); CALCIUM 9.9 mg/dL (8.4-10.2); CARBON DIOXIDE 27 mmol/L (22-30); CHLORIDE 102 mmol/L (98-107); GLUCOSE 116 mg/dL (75-110); LIPASE 506.5 U/L (23-300); POTASSIUM 4.5 mmol/L (3.6-5.0); SODIUM 139.2 mmol/L (137-145); TOTAL PROTEIN 7.3 g/dL (6.3-8.2)
--- NOTE | 2018-05-18 11:08 | RADIOLOGY REPORT (SQ) ---
EXAM DESCRIPTION: CT LTD RENAL STONE PROTOCOL ON COMPLETED DATE/TIME: 05/18/2018 10:44 am REASON FOR STUDY: Right flank pain, questionable stone COMPARISON: 04/13/2017. TECHNIQUE: CT scan of the abdomen and pelvis performed without intravenous or oral contrast. Images reviewed with lung, soft tissue, and bone windows. Reconstructed coronal and sagittal MPR images revi ewed. All images stored on PACS. All CT scanners at this facility use dose modulation, iterative reconstruction, and/or weight based d osing when appropriate to reduce radiation dose to as low as reasonably achievable (ALARA). [facility]: Dose Right [facility]: CareDose [facility]: Dose Right [facility]: Teradose 4D [facility]: [employer] RADIATION DOSE: CT Rad equipment meets quality standard of care and radiation dose reduction techniq ues were employed. CTDIvol: 7.7 mGy. DLP: 379 mGy-cm.mGy. LIMITATIONS: None. FINDINGS: LOWER CHEST: No significant findings. No nodules or infiltrates. NON-CONTRASTED LIVER, SPLEEN, ADRENALS: Evaluation limited by lack of IV contrast. No identified sign ificant masses. PANCREAS: No masses. No peripancreatic inflammatory changes. GALLBLADDER: No identified stones by CT criteria. No inflammatory changes to suggest cholecystitis. RIGHT KIDNEY AND URETER: No suspicious masses. Assessment limited by lack of IV contrast. Multiple calyceal calculi. 9.5 mm calculus in the mid ureter at the level of L4-L5. Moderate hydronephrosis and hydroureter. LEFT KIDNEY AND URETER: No suspicious masses. Assessment limited by lack of IV contrast. Multiple c alyceal calculi. No hydronephrosis or hydroureter. AORTA AND RETROPERITONEUM: No aneurysm. No retroperitoneal masses or adenopathy. BOWEL AND PERITONEAL CAVITY: No obvious masses or inflammatory changes. No free fluid. APPENDIX: Normal. PELVIS, BLADDER, AND ABDOMINAL WALL:No abnormal masses. No free fluid. Bladder normal. BONES: No significant findings. OTHER: No other significant finding. IMPRESSION: 1. MULTIPLE CALYCEAL CALCULI IN BOTH KIDNEYS. 9.5 MM CALCULUS IN THE MID RIGHT URETER WITH MODERATE HYDRONEPHROSIS AND HYDROURETER. 2. NO OTHER SIGNIFICANT OR ACUTE PROCESS IN THE ABDOMEN OR PELVIS. COMMENT: Quality ID # [id number]: Final reports with documentation of one or more dose reduction techniques (e.g., Automated exposure control, adjustment of the mA and/or kV according to patient size, use of iterative reconstruction technique) TECHNICAL DOCUMENTATION: JOB ID: [id number] [employer]- All Rights Reserved Reading location - IP/workstation name: [email or web address]
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
[2018-05-18] MEDS ORDERED: KETOROLAC TROMETHAMINE INJ/PF 30 MG/1 ML SDV IV ONE (12:05)
[2018-05-18] MEDS ORDERED: ONDANSETRON HCL INJ/PF 4 MG/2 ML SDV IV ONE (12:06)
--- NOTE | 2018-05-18 12:25 | RADIOLOGY REPORT (SQ) ---
EXAM DESCRIPTION: CHEST 2 VIEWS COMPLETED DATE/TIME: 05/18/2018 12:15 pm REASON FOR STUDY: post op COMPARISON: 06/11/2017. EXAM PARAMETERS: NUMBER OF VIEWS: two views TECHNIQUE: Digital Frontal and Lateral radiographic views of the chest acquired. RADIATION DOSE: NA LIMITATIONS: none FINDINGS: LUNGS AND PLEURA: No opacities, masses or pneumothorax. No pleural effusion. MEDIASTINUM AND HILAR STRUCTURES: No masses or contour abnormalities. HEART AND VASCULAR STRUCTURES: Heart normal size. No evidence for failure. BONES: No acute findings. HARDWARE: None in the chest. OTHER: No other significant finding. IMPRESSION: NO ACUTE RADIOGRAPHIC FINDING IN THE CHEST. TECHNICAL DOCUMENTATION: JOB ID: [id number] [employer]- All Rights Reserved Reading location - IP/workstation name: [email or web address]
[2018-05-18] MEDS ORDERED: MIDAZOLAM 2 MG/2 ML INJ ONE (13:25)
[2018-05-18] MEDS ORDERED: FENTANYL CITRATE INJ/PF 100 MCG/2 ML AMPUL ONE (13:25)
[2018-05-18] MEDS ORDERED: PROPOFOL INJ 200 MG/20 ML VIAL IV ONE (13:26)
[2018-05-18] MEDS ORDERED: GLUCAGON,HUMAN RECOMB 1 MG INJ SUBCUT PRN (14:06)
[2018-05-18] MEDS ORDERED: DEXTROSE 40% GEL 15 GM TUBE PO PRN ×2 (14:06)
[2018-05-18] MEDS ORDERED: DEXTROSE 50%-WATER 25 GM/50 ML DISP.SYRIN IV PRN ×2 (14:06)
[2018-05-18] MEDS ORDERED: IPRATROPIUM/ALBUTEROL 0.5-2.5 MG/3 ML AMPUL NEB PRN (14:06)
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
--- NOTE | 2018-05-18 14:32 | EKG REPORT ---
SEVERITY:- OTHERWISE NORMAL ECG - SINUS BRADYCARDIA : Confirmed by: Meghana Jenkins MD 18-May-2018 14:32:07
[2018-05-18] MEDS ORDERED: DEXMEDETOMIDINE INJ 80 MCG/20 ML VIAL IV ONE (14:34)
[2018-05-18] MEDS ORDERED: MEPERIDINE HCL/PF INJ 25 MG/1 ML DISP.SYRIN IV PRN (15:51)
[2018-05-18] MEDS ORDERED: PROMETHAZINE HCL INJ 25 MG/1 ML VIAL IV PRN (15:51)
[2018-05-18] MEDS ORDERED: DIPHENHYDRAMINE HCL 50 MG/ML VIAL IV PRN (15:51)
[2018-05-18] MEDS ORDERED: FENTANYL CITRATE INJ/PF 100 MCG/2 ML AMPUL IV PRN ×3 (15:51)
--- NOTE | 2018-05-18 15:56 | PDOC CONSULTATION ---
Consultation Consult Date: 05/18/80 Attending physician:: JIM GARRIDO Consult reason:: Obstructing stone in the right ureter with elevation of creatinine History of Present Illness Admission Date/PCP: 05/18/18 12:13 History of Present Illness: SUJATHA CAMARILLO is a 73 year old male Past Medical History Cardiac Medical History: Reports: Myocardial Infarction, Hyperlipidema Endocrine Medical History: Reports: Diabetes Mellitus Type 2 Musculoskeltal Medical History: Reports: Arthritis Psychiatric Medical History: Reports: Post Traumatic Stress Disorder Past Surgical History Past Surgical History: Reports: Cardiac Catheterization, Tonsillectomy Social History Smoking Status: Never Smoker Frequency of Alcohol Use: None Hx Recreational Drug Use: No Drugs: None Hx Prescription Drug Abuse: No - Advance Directive Resuscitation Status: Full Code Family History Family History: Reviewed & Not Pertinent, CAD, Hypertension Parental Family History Reviewed: No Children Family History Reviewed: No Sibling(s) Family History Reviewed.: No Medication/Allergy Home Medications: Atorvastatin Calcium [Lipitor 40 mg Tablet] 40 mg PO QHS 09/25/17 Lisinopril [Prinivil 10 mg Tablet] 10 mg PO DAILY 09/25/17 Metformin HCl [Glucophage 500 mg Tablet] 1,000 mg PO BID 09/25/17 Niacin [Niacin ER] 1,000 mg PO DAILY 09/25/17 Aspirin [Aspirin 81 mg Chewable Tablet] 81 mg PO DAILY tab.chew 09/26/17 Docusate Sodium [Colace 100 mg Capsule] 100 mg PO BID capsule 09/26/17 Gabapentin [Neurontin 300 mg Capsule] 600 mg PO TID capsule 09/26/17 Prazosin HCl [Minipress] 2 mg PO QHS #0 09/26/17 Sertraline HCl [Zoloft 50 mg Tablet] 100 mg PO Q12 tablet 09/26/17 Allergies/Adverse Reactions: No Known Allergies Allergy (Verified 05/18/18 09:51) Physical Exam Vital Signs: Temp Pulse Resp BP Pulse Ox 97.9 F 60 16 118/68 98 05/18/18 14:39 05/18/18 14:39 05/18/18 14:39 05/18/18 14:39 05/18/18 14:39 Results Impressions: Limited or Localized CT 05/18/18 09:51 IMPRESSION: 1. MULTIPLE CALYCEAL CALCULI IN BOTH KIDNEYS. 9.5 MM CALCULUS IN THE MID RIGHT URETER WITH MODERATE HYDRONEPHROSIS AND HYDROURETER. 2. NO OTHER SIGNIFICANT OR ACUTE PROCESS IN THE ABDOMEN OR PELVIS. Chest X-Ray 05/18/18 11:53 IMPRESSION: NO ACUTE RADIOGRAPHIC FINDING IN THE CHEST. Assessment & Plan - Diagnosis (1) Hydronephrosis concurrent with and due to calculi of kidney and ureter Is this a current diagnosis for this admission?: Yes - Plan Summary Plan Summary: Patient for cystoscopy right insertion of double-J catheter.
--- NOTE | 2018-05-18 15:59 | Operative Report ---
Operative Report DATE OF SURGERY: 05/18/18 Operative Report: Right ureteral stone with obstruction and elevation of creatinine PREOPERATIVE DIAGNOSIS: Obstructed right kidney stone with hydronephrosis POSTOPERATIVE DIAGNOSIS: same OPERATION: Cystoscopy right retrograde pyelogram and insertion of double-J catheter SURGEON: JIM GARRIDO ANESTHESIA: GA TISSUE REMOVED OR ALTERED: None COMPLICATIONS: None ESTIMATED BLOOD LOSS: 0 PROCEDURE: With the patient in the supine position after the induction of anesthesia the whole area prepped and scrubbed in lithotomy position trying to introduce #21 cystoscope the urethra was found to be ventral he has hypospadias urethra. The meatus was dilated and then 21 cystoscope sheath was able to be entered bladder inspected normal right orifice identified guidewire was inserted over #5 urethral catheter then retrograde was done and then number 6 times 26 double-J catheter was inserted under fluoroscopy guidance we could see a gush of purulent and dirty material coming from the right kidney. The double-J was secured and positioned by fluoroscopy to be from the collecting system to the bladder. Bladder was emptied patient tolerated procedure well.
[2018-05-18] MEDS ORDERED: NORMAL SALINE 500 ML IV ONE (16:30)
[2018-05-18] MEDS ORDERED: DEXTROSE 5%-LACTATED RINGERS 1,000 ML IV PRN (17:00)
[2018-05-18] MEDS ORDERED: NORMAL SALINE 1000 ML 1,000 ML IV SCH (17:00)
[2018-05-18] MEDS ORDERED: CEFTRIAXONE SODIUM 1,000 MG in NORMAL SALINE 50 ML IV SCH (18:00)
--- NOTE | 2018-05-18 21:20 | RADIOLOGY REPORT (SQ) ---
EXAM DESCRIPTION: PYELOGRAM RETROGRADE COMPLETED DATE/TIME: 05/18/2018 6:42 pm REASON FOR STUDY: RIGHT STENT PLACEMENT RETROGRADE N13.2 HYDRONEPHROSIS WITH RENAL AND URETERAL YOAV CULOUS OBSTR COMPARISON: CT abdomen pelvis 05/18/2018 FLUOROSCOPY TIME: 40 seconds 8 digital radiographic images saved to PACS. TECHNIQUE: Intra procedural imaging and fluoro during right-sided urologic procedure NUMBER OF IMAGES: 8 digital radiographic images LIMITATIONS: None. FINDINGS: Intra procedural imaging and fluoro during right-sided double-J stent placement. Stone is still in the mid 3rd ureter on the final image, at about the level of the L2-3 disc space. Please s ee the operative report for further details. IMPRESSION: Intra procedural imaging and fluoro during right-sided double-J stent placement. Stones still appears to be in the mid 3rd of ureter COMMENT: Quality ID [id number]: Final reports for procedures using fluoroscopy that document radiation exp osure indices, or exposure time and number of fluorographic images (if radiation exposure indices are not available) Please consult full operative report of the attending physician for description of the procedure. TECHNICAL DOCUMENTATION: JOB ID: [id number] [employer]- All Rights Reserved Reading location - IP/workstation name: [email or web address]
[2018-05-19 05:14] LABS: HEMATOCRIT 34.9 % (37.9-51.0); HEMOGLOBIN 12.3 g/dL (13.5-17.0); MEAN CORPUSCULAR HEMOGLOBIN 31.1 pg (27.0-33.4); MEAN CORPUSCULAR HGB CONC 35.3 g/dL (32.0-36.0); MEAN CORPUSCULAR VOLUME 88 fl (80-97); PLATELET COUNT 309 10^3/uL (150-450); RED BLOOD COUNT 3.97 10^6/uL (4.35-5.55); RED CELL DISTRIBUTION WIDTH 12.2 % (11.5-14.0); WHITE BLOOD COUNT 7.4 10^3/uL (4.0-10.5)
[2018-05-19 05:39] LABS: ANION GAP 6 (5-19); BLOOD UREA NITROGEN 26 mg/dL (7-20); CALCIUM 9.3 mg/dL (8.4-10.2); CARBON DIOXIDE 25 mmol/L (22-30); CHLORIDE 107 mmol/L (98-107); GLUCOSE 112 mg/dL (75-110); POTASSIUM 5.2 mmol/L (3.6-5.0); SODIUM 138.4 mmol/L (137-145)
--- NOTE | 2018-05-19 07:31 | Physician Advisory Note ---
Physician Advisor ProgressNote .: [facility] I have reviewed the medical record for this patient. Physician Advisor Statement: Please consider documenting, if you agree: 1. "Acute Kidney Injury due to obstruction from stone; baseline Cr is 0.8" 2. ? "Acute pyelonephritis due to obstruction from calculus" - or what is the specific infxn being tx'd w/abx? (op report notes significant return of purulent material coming from kidney s/p stone removal; pt had flank pain, though no fever; "fever is absent in 30-50% of frail, older adults, even in the setting of serious infections", & "infections often present in subtle fashion in older adults" - UpToDate) 3. Medical necessity: If this Medicare pt is not felt safe for d/c today, please document the continued clinical concerns, & may change to Inpatient status. Thanks! CK
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
[2018-05-19] MEDS ORDERED: CEFTRIAXONE 1 GM/D5W RTU 1 GM/50 ML RTUPB IV SCH (10:00)
[2018-05-19 10:15] VITALS: BP 118/68
== END 2018-05-19 11:00 | disposition home or self-care (01) | DRG 674 ==
LOC: ER 09:08 → OBSVTOIN 12:13 → EH 12:13 → 3W 13:39
PROVIDERS: ADMIT Emergency Medicine; ATTEND Emergency Medicine
PROC: BT1DZZZ Fluoroscopy of Right Kidney, Ureter and Bladder (ICD-10-PCS; 2018-05-18)
PROC: 0W9J40Z Drainage of Pelvic Cavity with Drainage Device, Percutaneous Endoscopic Approach (ICD-10-PCS; principal; 2018-05-18 15:00)
DX: N13.2 Hydronephrosis with renal and ureteral calculous obstruction (principal); R00.1 Bradycardia, unspecified; E11.9 Type 2 diabetes mellitus without complications; I10 Essential (primary) hypertension; I25.10 Atherosclerotic heart disease of native coronary artery without angina pectoris; N10 Acute pyelonephritis; E78.00 Pure hypercholesterolemia, unspecified; M19.90 Unspecified osteoarthritis, unspecified site; F43.10 Post-traumatic stress disorder, unspecified; N40.0 Benign prostatic hyperplasia without lower urinary tract symptoms; I25.2 Old myocardial infarction; Z79.899 Other long term (current) drug therapy; Z87.442 Personal history of urinary calculi; Z79.82 Long term (current) use of aspirin; Z95.5 Presence of coronary angioplasty implant and graft; Z82.49 Family history of ischemic heart disease and other diseases of the circulatory system
CPT/HCPCS: 36415; 71046; 74420; 76380; 80048; 80053; 81001; 82962; 83690; 85025; 85027; 87040; 910; 93005; 93010; 96374; 99285; C1758; C1769; C2617; J0696; J2250; J2405; J2704; J3010; J3490

== ENCOUNTER 2019-10-28 21:51 | Emergency (ER) | payer MEDICARE, OTHER ==
--- NOTE | 2019-10-28 22:46 | ER Document Report ---
ED Medical Screen (RME) - General Stated Complaint: SWOLLEN FEET, BLACK AND BLUE Time Seen by Provider: 10/28/19 22:40 Notes: 74-year-old male with chief complaint of pain and swelling with discoloration to the left lower leg. He walks with a cane, he states he cannot remember if he "bumped it" or not but today he noticed it became swollen, there is a bruising discoloration to his foot, and it hurts to walk. He denies pain when he is not walking on the foot. He is on Plavix, aspirin, and he is a diabetic. He does have some dementia and memory issues, daughter is at bedside. TRAVEL OUTSIDE OF THE [place] IN LAST 30 DAYS: No - Related Data Allergies/Adverse Reactions: No Known Allergies Allergy (Verified 05/18/18 09:51) Past Medical History - Past Medical History Cardiac Medical History: Reports: Hx Heart Attack, Hx Hypercholesterolemia Endocrine Medical History: Reports: Hx Diabetes Mellitus Type 2 Renal/ Medical History: Reports: Hx Benign Prostatic Hyperplasia, Hx Kidney Stones. Denies: Hx Peritoneal Dialysis Musculoskeltal Medical History: Reports Hx Arthritis Psychiatric Medical History: Reports: Hx Post Traumatic Stress Disorder Past Surgical History: Reports: Hx Cardiac Catheterization, Hx Cardiac Surgery - stent, Hx Tonsillectomy Physical Exam - Vital signs Vitals: Temp Pulse Resp BP Pulse Ox 97.9 F 55 L 20 113/67 97 10/28/19 22:05 10/28/19 22:05 10/28/19 22:10/28/19 22:10/28/19 22:05 - Extremities General lower extremity: Other - Left foot with some soft tissue swelling and bruising suggesting hematoma. Strong dorsalis pedis pulse, sensation and capillary refill intact, range of motion of the ankle intact but somewhat painful, there is some tenderness over the tib-fib and lower knee area as well. Unremarkable lower extremity otherwise. Course - Re-evaluation Re-evalutation: I have greeted and performed a rapid initial assessment of this patient. A comprehensive ED assessment and evaluation of the patient, analysis of test results and completion of the medical decision making process will be conducted by additional ED providers. - Vital Signs Vital signs: Temp Pulse Resp BP Pulse Ox 97.9 F 55 L 20 113/67 97 10/28/19 22:05 10/28/19 22:05 10/28/19 22:05 10/28/19 22:05 10/28/19 22:05
[2019-10-28 23:34] LABS: ABSOLUTE EOSINOPHILS # (AUTO) 0.3 10^3/uL (0.0-0.6); ABSOLUTE LYMPHOCYTES (AUTO) 1.7 10^3/uL (0.5-4.7); ABSOLUTE MONOCYTES (AUTO) 0.6 10^3/uL (0.1-1.4); ABSOLUTE NEUT (AUTO) 3.7 10^3/uL (1.7-8.2); BASOPHILS % (AUTO) 0.8 % (0-2); EOSINOPHILS % (AUTO) 4.7 % (0-6); HEMATOCRIT 36.6 % (37.9-51.0); LYMPHOCYTES % (AUTO) 26.4 % (13-45); MEAN CORPUSCULAR HGB CONC 35.6 g/dL (32.0-36.0); MEAN CORPUSCULAR VOLUME 87 fl (80-97); MONOCYTES % (AUTO) 10.2 % (3-13); PLATELET COUNT 186 10^3/uL (150-450); RED CELL DISTRIBUTION WIDTH 12.6 % (11.5-14.0); SEGMENTED NEUTROPHILS % (AUTO) 57.9 % (42-78); TOTAL CELLS COUNTED % (AUTO) 100 %; WHITE BLOOD COUNT 6.3 10^3/uL (4.0-10.5)
--- NOTE | 2019-10-28 23:34 | RADIOLOGY REPORT (SQ) ---
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 TECHNIQUE: AP, oblique, and lateral images of the left knee were obtained. COMPARISON: None available FINDINGS: There are no findings to suggest an acute fracture or subluxation. No suprapatellar joint effusion is seen. The visualized soft tissues are grossly unremarkable. No gross erosions or abnormal soft tissue calcifications are seen. There is mild to moderate tricompartmental joint space narrowing. IMPRESSION: There are no findings to suggest an acute fracture or subluxation within the left knee.
--- NOTE | 2019-10-28 23:36 | RADIOLOGY REPORT (SQ) ---
EXAM DESCRIPTION: Left ankle RadLex: XR ANKLE 3 OR MORE VIEWS Views: 3 CLINICAL HISTORY: 74 years Male; ?injury, swelling, pain; COMPARISON: None. FINDINGS: Negative for acute fracture, dislocation, or radiopaque foreign body. There is a plantar calcaneal spur. Achilles tendon contour is normal. Mild degenerative osteophyte formation is noted at the medial and lateral malleolus. No lytic bone changes. IMPRESSION: 1. No acute fracture or dislocation. 2. Chronic changes as described.
--- NOTE | 2019-10-28 23:38 | RADIOLOGY REPORT (SQ) ---
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 HISTORY: 74-year-old patient with left lower extremity pain . FINDINGS: There are no findings to suggest an acute fracture or subluxation within the left tibia or fibula. The visualized soft tissues appear grossly unremarkable. IMPRESSION: There are no findings to suggest an acute fracture or subluxation within the left tibia or fibula.
--- NOTE | 2019-10-28 23:38 | RADIOLOGY REPORT (SQ) ---
EXAM DESCRIPTION: Left foot RadLex: XR FOOT 3 OR MORE VIEWS Views: 3 CLINICAL HISTORY: 74 years Male; ?injury, swelling, pain; COMPARISON: None. FINDINGS: There are chronic changes at the 1st MTP joint, with severe joint space narrowing and some remodeling. No acute fracture or dislocation. No hyperdense foreign bodies. No soft tissue air. Retrocalcaneal spur is noted. IMPRESSION: 1. No acute fracture or dislocation 2. 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
[2019-10-28 23:43] LABS: ANION GAP 7 (5-19); BLOOD UREA NITROGEN 17 mg/dL (7-20); CALCIUM 9.5 mg/dL (8.4-10.2); CARBON DIOXIDE 28 mmol/L (22-30); CHLORIDE 101 mmol/L (98-107); GLUCOSE 127 mg/dL (75-110); POTASSIUM 4.4 mmol/L (3.6-5.0)
[2019-10-29] MEDS ORDERED: HYDROCODONE/ACETAMINOPHEN 5-325 MG (6 TAB/ER DISP) PO PRN (01:36)
--- NOTE | 2019-10-29 01:41 | ER Document Report ---
ED General - General Chief Complaint: Skin Problem Stated Complaint: SWOLLEN FEET, BLACK AND BLUE Time Seen by Provider: 10/28/19 22:40 Primary Care Provider: HALLEY FOURNIER PA-C [Primary Care Provider] - Follow up as needed Notes: Patient is a 74-year-old male with chief complaint of pain and swelling with discoloration to the left lower leg. The discoloration and pain is mainly over the foot. He walks with a cane, he states he cannot remember if he "bumped it" or not but today he noticed it became swollen, there is a bruising discoloration to his foot, and it hurts to walk. He denies pain when he is not walking on the foot. He is on Plavix, aspirin, and he is a diabetic. He does have some dementia and memory issues, daughter is at bedside. TRAVEL OUTSIDE OF THE [place] IN LAST 30 DAYS: No - Related Data Allergies/Adverse Reactions: No Known Allergies Allergy (Verified 05/18/18 09:51) Home Medications: metformin 1000 mg bid. simvastatin 40 mg qpm. plavix 75 mg qam. lisinopril 10 mg qday. gabapentin ER 600 mg bid. prazosin4 mg qpm. zoloft 100 mg bid. vitamin D3 1 tab qday. asa 81 mg qday. fish oil 1000 mg qday Past Medical History - General Information source: Patient - Social History Smoking Status: Never Smoker Frequency of alcohol use: None Drug Abuse: None Lives with: Family Family History: Reviewed & Not Pertinent, CAD, Hypertension Patient has suicidal ideation: No Patient has homicidal ideation: No - Past Medical History Cardiac Medical History: Reports: Hx Heart Attack, Hx Hypercholesterolemia Endocrine Medical History: Reports: Hx Diabetes Mellitus Type 2 Renal/ Medical History: Reports: Hx Benign Prostatic Hyperplasia, Hx Kidney Stones. Denies: Hx Peritoneal Dialysis Musculoskeletal Medical History: Reports Hx Arthritis Psychiatric Medical History: Reports: Hx Post Traumatic Stress Disorder Past Surgical History: Reports: Hx Cardiac Catheterization, Hx Cardiac Surgery - stent, Hx Tonsillectomy Review of Systems - Review of Systems Constitutional: No symptoms reported EENT: No symptoms reported Cardiovascular: No symptoms reported Respiratory: No symptoms reported Gastrointestinal: No symptoms reported Genitourinary: No symptoms reported Male Genitourinary: No symptoms reported Musculoskeletal: See HPI Skin: See HPI Hematologic/Lymphatic: No symptoms reported Neurological/Psychological: No symptoms reported Physical Exam - Vital signs Vitals: Temp Pulse Resp BP Pulse Ox 97.9 F 55 L 20 113/67 97 10/28/19 22:05 10/28/19 22:05 10/28/19 22:05 10/28/19 22:05 10/28/19 22:05 - Notes Notes: GENERAL: Alert, interacts well. No acute distress. HEAD: Normocephalic, atraumatic. EYES: Pupils equal, round, and reactive to light. Extraocular movements intact. ENT: Oral mucosa moist, tongue midline. Oropharynx unremarkable. Airway patent. Nares patent, no nasal septal hematoma, TM's intact. NECK: Full range of motion. Supple. Trachea midline. LUNGS: Clear to auscultation bilaterally, no wheezes, rales, or rhonchi. No respiratory distress. HEART: Regular rate and rhythm. No murmur ABDOMEN: Soft, non-tender. Non-distended. Bowel sounds present in all 4 quadrants. GENITOURINARY: Deferred EXTREMITIES: Left foot with some soft tissue swelling and bruising suggesting hematoma, mainly over the lateral aspect dorsally. Strong dorsalis pedis pulse, sensation and capillary refill intact, range of motion of the ankle intact but somewhat painful, there is some tenderness over the tib-fib and lower knee area anteriorly as well. Unremarkable lower extremity otherwise. No significant edema/swelling. BACK: no cervical, thoracic, lumbar midline tenderness. No saddle anesthesia, normal distal neurovascular exam. Moves all extremities in full range of motion. NEUROLOGICAL: Alert and oriented x3. Normal speech. Cranial nerves II through XII grossly intact. PSYCH: Normal affect, normal mood. SKIN: Warm, dry, normal turgor. No rashes or lesions noted. Course - Re-evaluation Re-evalutation: Patient has some pain with palpation of the left distal anterior tibial area and over the top of the foot with what appears to be a developing hematoma at the foot. CBC unremarkable with no concerning hemoglobin or leukocytosis, chemistry unremarkable. Vital signs unremarkable. Patient has no other complaints. X- rays are all negative with no signs of concerning injury. I suspect this is soft tissue injury with secondary bleedings because of patient's Plavix and aspirin. Discussed with patient and daughter. They are concerned patient might have a blood clot in his leg causing swelling. I find his very unlikely because patient does not have a history of blood clots and he is on anticoagulation, however because of the swelling this will be performed. We do not have this at this time and unfortunately, I discussed options, decision was made to have a prescription provided and he will have this done during the morning. Discussed care of suspected hematoma, follow-up, and return precautions. They state appreciation and agreement. Stable at time of discharge. - Vital Signs Vital signs: Temp Pulse Resp BP Pulse Ox 97.4 F 55 L 14 129/71 H 96 10/29/19 02:10 10/29/19 02:10 10/29/19 02:10 10/29/19 02:10 10/29/19 02:10 - Laboratory Result Diagrams: 10/28/19 23:15 10/28/19 23:15 Laboratory results interpreted by me: 10/28/19 10/28/19 23:15 23:15 RBC 4.20 L Hgb 13.0 L Hct 36.6 L Sodium 136.1 L Glucose 127 H Discharge - Discharge Clinical Impression: Left foot pain, Discoloration of skin, Left leg pain Condition: Stable Disposition: HOME, SELF-CARE Additional Instructions: The x-rays and lab work do not show any concerning findings. Based on his exam I think he has a hematoma developing from a injury which caused bleeding under the skin. I recommend compression stocking, elevation, and reduced activity. This should start to resolve. Because he is on blood thinners I have a lower suspicion of a blood clot, however I still recommend that you complete the venous Doppler ultrasound, see the prescription, call to have this completed. Take Tylenol for pain, if needed take 1/2 to 1 of the tablets for pain if needed and provided. If you do consider [id number] stool softeners to avoid constipation. Follow-up with primary care for additional management. Return if you worsen including severe worsening swelling, developing or spreading redness, severe worsening pain, fever, shortness of breath, chest pain, or any other concerning symptoms. Forms: Follow-Up Outpatient Testing Referrals: HALLEY FOURNIER PA-C [Primary Care Provider] - Follow up as needed
[2019-10-29 02:11] VITALS: BP 129/71
== END 2019-10-29 02:00 | disposition home or self-care (01) ==
LOC: ER 21:51
DX: M79.672 Pain in left foot (principal); M79.605 Pain in left leg; E78.00 Pure hypercholesterolemia, unspecified; E11.9 Type 2 diabetes mellitus without complications; I25.2 Old myocardial infarction; Z79.02 Long term (current) use of antithrombotics/antiplatelets; Z79.82 Long term (current) use of aspirin
CPT/HCPCS: 99283; 36415; 85025; 80048; 73610; 73630; 73564; 73590; A9270